=== PATIENT | male | born 1950 | race Caucasian/White ===

== ENCOUNTER 2023-06-08 19:24 | Inpatient (IN) ==
[2023-06-08] MEDS: NOREPINEPHRINE/D5W 4 MG/250 ML PLCT IV SCH (19:34)
[2023-06-08] MEDS: EPINEPHrine/NSS 4 MG/254 ML BAG IV SCH (19:34)
[2023-06-08] MEDS: propofoL 1,000 MG/100 ML VIAL IV SCH (19:35)
[2023-06-08 19:50] LABS: iSTAT Creatinine 1.5 mg/dl (0.6-1.3); iSTAT Hemoglobin 13.6 g/dl (14.0-18.0); iSTAT Ionized Calcium 1.26 mmol/l (1.12-1.32); iSTAT Potassium 6.5 mmol/L (3.3-5.0)
[2023-06-08 19:51] LABS: Oxygen Saturation VBG 61.8 %; PCO2 VBG 102 mmHg (38-50); PO2 VBG 54 mmHg; pH VBG < 7.00 (7.36-7.41)
[2023-06-08 19:58] LABS: INR 1.2 (0.9-1.1); Prothrombin Time 12.7 Seconds (9.0-12.0)
[2023-06-08 20:14] LABS: Basophils # (auto) 0.05 K/uL (0.00-0.20); Basophils % (auto) 0.6 %; Echinocytes 3+; Eosinophils % (auto) 2.3 %; Hematocrit (blood only) 44.8 % (42.0-52.0); Hemoglobin 13.3 g/dl (14.0-18.0); Immature Granulocytes # (auto) 0.55 K/uL (0.01-0.20); Immature Granulocytes % (auto) 6.3 %; Lymphocytes # (auto) 2.18 K/uL (1.20-3.40); Lymphocytes % (auto) 25.1 %; Mean Corpuscular Hemoglobin 28.9 pg (25.0-34.0); Mean Corpuscular Hgb Conc 29.7 g/dL (32.0-36.0); Mean Corpuscular Volume 97.2 fL (80.0-100.0); Mean Platelet Volume 11.4 fL (9.4-12.4); Monocytes # (auto) 0.49 K/uL (0.11-0.59); Monocytes % (auto) 5.6 %; Neutrophils # (auto) 5.23 K/uL (1.40-6.50); Neutrophils % (auto) 60.1 %; Nucleated RBC # (auto) 0.02 K/uL (0.00-0.12); Nucleated RBC % (auto) 0.2 %; Platelet Count 118 K/uL (130-400); Polychromasia 1+; Red Blood Count 4.61 M/uL (4.70-6.10)
[2023-06-08 20:16] LABS: iSTAT Creatinine 1.4 mg/dl (0.6-1.3); iSTAT Hemoglobin 13.6 g/dl (14.0-18.0); iSTAT Ionized Calcium 1.42 mmol/l (1.12-1.32); iSTAT Potassium 7.1 mmol/L (3.3-5.0)
[2023-06-08 20:25] LABS: Alanine Aminotransferase 77 U/L (7-52); Albumin Globulin Ratio 1.2 (0.9-2); Albumin Level 3.1 gm/dl (3.4-5.0); Alkaline Phosphatase 58 U/L (34-104); Anion Gap 12 (3-11); Aspartate Aminotransferase 98 U/L (13-39); BUN Creatinine Ratio 12.4 (10-20); Bilirubin,Total 0.4 mg/dl (0.2-1.0); Blood Urea Nitrogen 20 mg/dl (6-23); Calcium 9.4 mg/dl (8.6-10.3); Carbon Dioxide 23 mmol/L (21-32); Chloride 102 mmol/L (98-107); Creatine Kinase 136 U/L (30-223); Est GFR (African American) 48.8 ml/min; Est GFR (Non-African American) 42.1 ml/min; Globulin 2.5 gm/dl (2.5-4.0); Glucose 380 mg/dl (70-99(Fasting)); Lipase 60 U/L (11-82); Potassium 6.5 mmol/L (3.5-5.1); Sodium 137 mmol/L (136-145); Total Protein 5.6 gm/dl (6.0-8.3)
[2023-06-08] MEDS: SODIUM BICARBONATE 8.4% 75 MEQ in SODIUM CHLORIDE 0.45 % 1,000 ML IV SCH (21:00)
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
[2023-06-08] MEDS: NovoLIN-R INSULIN PER UNIT CHARGE IV STA (21:18)
[2023-06-08] MEDS: STAT IV/IM STA (21:18)
[2023-06-08] MEDS: STAT IV Infusion **Titration per Protocol STA ×3 (21:18→21:52)
[2023-06-08] MEDS: ALBUTEROL 0.5% NEB SOLN 2.5 MG/0.5 ML VIAL NEB STA (21:18)
[2023-06-08] MEDS: RAPID SEQUENCE INDUCTION BAG ONE (21:20)
[2023-06-08 21:24] LABS: iSTAT Arterial Blood Gas HCO3 20 meg/L (19-24); iSTAT Arterial Blood Gas pCO2 52 mmHg (35-46); iSTAT Arterial Blood Gas pO2 239 mmHg (80-95); iSTAT Carbon Dioxide 22 mmol/L (24-31); iSTAT Hematocrit 44 % (42-52); iSTAT Potassium 6.5 mmol/L (3.3-5.0); iSTAT Sodium 137 mmol/L (135-144)
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
[2023-06-08] MEDS ORDERED: PROPOFOL BOLUS FROM BAG IV PRN (21:30)
[2023-06-08] MEDS: PROPOFOL IV EMULSION 10 MG/ML 100 ML VIAL IV ONE (21:52)
[2023-06-08 22:02] LABS: Appearance Urine Cloudy (Clear); Bacteria Urine Automated Negative (Negative); Bilirubin Urine Negative (Negative); Blood Urine Negative (Negative); Color Urine Yellow; Epithelial Cell Urine Auto >30 /lpf (0-5); Glucose Urine UA Negative (Negative); Ketones Urine Negative (Negative); Leukocyte Esterase Urine Negative (Negative); Nitrite Urine Negative (Negative); Protein Urine 2+ (Negative); Specific Gravity Urine 1.023 (1.000-1.030); Urobilinogen Urine Negative (Negative)
[2023-06-08] MEDS: OPTIRAY 320 125ml IV ONE (22:45)
--- NOTE | 2023-06-08 23:03 | CT Scan Report ---
Exam(s): CT HEAD Without Contrast EXAM: CT Head Without Intravenous Contrast CLINICAL HISTORY: Reason for exam: post arrest. TECHNIQUE: Axial computed tomography images of the head/brain without intravenous contrast. CTDI is 54.8 mGy and DLP is 1067.74 mGy-cm. Automated exposure control was utilized for the study. A dose lowering technique was utilized adhering to the principles of ALARA. COMPARISON: No relevant prior studies available. FINDINGS: Brain: Diffuse loss of perez-white matter differentiation. Sulcal, sylvian fissure, and basal cistern effacement. Background of chronic small vessel ischemic disease. No acute intracranial hemorrhage. No midline shift. Ventricles: Unremarkable. No hydrocephalus. Bones/joints: Unremarkable. No skull fracture. Soft tissues: Unremarkable. Sinuses: Chronic severe inflammatory paranasal sinus disease with complete opacification of the left frontal sinus and bilateral maxillary sinuses, in majority opacification of the ethmoid air cells. Mild mucosal thickening in the sphenoid sinus. Right frontal sinus is clear. Mastoid air cells: Mastoid air cells are clear. Tubes, lines and devices: Patient is intubated. IMPRESSION: Diffuse loss of perez-white matter differentiation. Global cerebral edema. Findings consistent with hypoxic-ischemic injury. Electronically signed by: Jarek Harden M.D. 06/08/23 23:02 PM
--- NOTE | 2023-06-08 23:11 | CT Scan Report ---
Exam(s): CTA CHEST W/WO Contrast IV Amt: 114 ml opti 320 EXAM: CT Angiography Chest Without and With Intravenous Contrast CLINICAL HISTORY: Reason for exam: post arrest. TECHNIQUE: Axial computed tomographic angiography images of the chest without and with intravenous contrast. CTDI is 54.8 mGy and DLP is 1448.63 mGy-cm. Automated exposure control was utilized for the study. A dose lowering technique was utilized adhering to the principles of ALARA. MIP reconstructed images were created and reviewed. CONTRAST: Patient received 114 ml opti 320 of IV contrast COMPARISON: No relevant prior studies available. FINDINGS: Endotracheal tube terminates 2.5 cm from the frieda. Right internal jugular central venous catheter extends to the SVC. There is a left chest wall dual-lead AICD-pacemaker. There is thoracic aortic atherosclerosis without intramural hematoma, aneurysm, or dissection. There is adequate pulmonary artery opacification with normal caliber of the main pulmonary artery. There is no evidence of acute pulmonary embolism. Heart size is upper limits of normal. Coronary arteries are calcified. There is no pericardial effusion or RV strain. There is no mediastinal, hilar, or axillary lymphadenopathy by CT size criteria. There are small layering bilateral pleural effusions. There is no pneumothorax. Dependent consolidations are present in the bilateral upper and lower lobes, with nondependent patchy alveolar opacities bilaterally. Additionally, pulmonary edema suggested with septal thickening diffusely. There are findings of recent chest compressions with acute nondisplaced sternal body fracture. There are nondisplaced buckle fractures of anterior right ribs 3-4. There are mildly displaced fractures of anterior left ribs 2-3, and nondisplaced fractures of anterior left ribs 4-6. There are degenerative changes within the spine. IMPRESSION: 1. Evidence of recent chest compressions with nondisplaced sternal body fracture, fractures of anterior right ribs 3-4, and fractures of anterior left ribs 2-6. Fractures of left ribs 2-3 are mildly displaced. 2. Bilateral dependent consolidations and nondependent patchy opacities. Such parenchymal lung abnormalities are frequently seen status post chest compressions. Aspiration, pneumonia not excluded. 3. Pulmonary edema and small pleural effusions. 4. No evidence of aortic aneurysm or dissection. No evidence of pulmonary embolism. Electronically signed by: Jarek Harden M.D. 06/08/23 23:09 PM
--- NOTE | 2023-06-08 23:17 | Procedure Note ---
Procedure Note Date of Service June 08, 2023 Note ARTERIAL LINE PROCEDURE NOTE: Procedure: Arterial Line Placement Proceduralist: Yuniel GRAJEDA [facility] Attending: Dr. Rubio Indication: Monitoring on Pressors Anesthesia: x None Emergent Consent was implied as patient is full code presenting as cardiac arrest requiring high dose vasopressors and on full life support. A time-out was completed verifying correct patient, procedure, site, positioning. Allens test was performed to ensure adequate perfusion. Patients RIGHT wrist was prepped and draped in the usual sterile fashion. Under direct palpation, A 20g Arrow arterial line was introduced into the RIGHT RADIAL artery x1 attempt. Brisk blood flow was noted, wire was advanced without resistance and the catheter was threaded without resistance. The needle was removed with appropriate blood return, pressure tubing was attached and good arterial waveform was observed. The patient tolerated the procedure well. The line was secured using suture and dressed sterile. Blood Loss: Minimal Complications: None immediately noted Coding CPT Codes Tubes, Drains, and Vasc Access - Tubes, Drains, and Vasc Access: [id number] Arterial Cath/Cannulation Sampling/Monitoring/Transfusion ([id number]) [facility] [place] Procedure Codes (Charges) Tubes, Drains, and Vasc Access Procedure 1: Tubes, Drains, and Vasc Access: [id number] Arterial Cath/Cannulation Sampling/Monitoring/Transfusion
--- NOTE | 2023-06-08 23:17 | Critical Care Consultation ---
Date of Consultation June 08, 2023 Assessment & Plan (1) Morbid obesity: (2) Cardiac arrest: (3) Required emergency intubation: (4) Shock circulatory: (5) Hyperkalemia: (6) Metabolic acidosis: (7) Lactic acidosis: (8) DEVAUGHN (acute kidney injury): (9) Elevated liver enzymes: (10) Hyperglycemia: (11) Heart failure: (12) Current use of longterm anticoagulation: Plan Reason Critically Ill: [facility] x2 with [facility] x1 with return of ROSC, extended down time and hypoxic. Admitted to ICU post cardiac arrest care with strong concern and suspicion for anoxic brain injury. Neuro - Concern for anoxic brain injury, Sedation for mechanical ventilation CAM ICU: [facility] - Currently patient without favorable neurologic exam post arrest- he is with GCS 3T and Four Score of 1 (E0, M0, B0, R1) - Head CT obtained unfortunately already reveals loss of perez-white matter differentiation with global cerebral edema- consistent with anoxic/ischemic injury- this carries a poor prognostication for meaningful neurological recovery at this time, however full neurological prognostication for PSV/brain should occur at 72 hour matilda. - Obtain MRI in morning and EEG in morning for further neuro-prognostication and evaluation - He is Hypothermic on arrival to EMD and in the ICU at 35.1- will not warm or cool at this time- maintain normothermia with goal <37.5 - Correct acidosis, maintain Glucose 110-180, maintain PaO2 >60 and Spo2 >95, maintain CO2 35-45 - He was with myoclonic jerks and bucking the ventilator when sedation was low in the EMD- this has decreased following increasing propofol to 30mcg/kg/min- continue sedation for antiseizure properties with this degree of likely cerebral ischemia - If siezure activity worsens or is more apparent add keppra - Await family arrival to further determine goals of care. Cardiac - post cardiac arrest x3, shock circulatory with organ dysfunction, HFrEF, presence of AICD, longterm anticoagulated with Eliquis, Antiarrhythmic - [facility] x2 and IHCA x1- with return of ROSC and prolonged down time- Normothermia goal as above - Unsure of etiology of his Cardiac Arrest at this time- had bedside ECHO performed by interventional cardiology- appreciate recs- noted with depressed EF and no RWMA- does not feel secondary to STEMI cause - CTA of chest negative for PE - If he survives or care is extended- interrogate AICD as no apparent discharges noted from arrests- pacing was appropriate AV post arrest - Appears euvolemic on exam - Was noted to be hyperkalemic on arrival but also associated with severe acidosis and this is likely related to prolonged downtime other than chronic hyperkalemia however unable to differentiate - Magnesium being checked on arrival to ICU- replace for goal >2.0 - Continue his Amiodarone down OGT in morning- if he is with ventricular ectopy or atrial arrhythmia will change to IV amiodarone, or if vasopressor requirement remains too high for safe GI administration place on IV without bolus - Hold Entresto, Carvedilol- until hemodynamics proven stable - Circulatory shock post cardiac arrest with multiorgan dysfunction - heart, lungs, neurological, liver, kidneys effected- Continue vasopressor support- wean as able to one vasopressor - Place arterial line - Continue supportive care Respiratory - Respiratory failure in setting of cardiac arrest requiring intubation and mechanical ventilation, hypoxia resolved - CTA negative for PE - Bilateral Pleural Effusions small no concern for hemothorax at this time - Wean vent settings as appropriate to maintain normal oxia and normal carbia GI - Elevated liver enzymes - Likely ischemia from shock- trend LFTS and INR - Continue supportive care - Hold Eliquis at this time RENAL/LYTES - DEVAUGHN, metabolic acidosis, lactic acidosis, hyperkalemia - DEVAUGHN with unknown baseline LEAD INVESTIGATOR- this most likely will progress to ATN with extent of downtime/hypoxia/hypoperfusion- supportive care- currently anuric - Continue with isotonic bicarb infusion until HCO3 20 - Hyperkalemia treated in EMD with insulin and calcium, and isotonic bicarb infusion - since corrected- likely secondary to severe acidosis and hypoxia/hypoperfusion - Lactic acidosis resolving- continue with vasopressors to maintain MAPS >65- secondary cardiac arrest/hypoxia/hypoperfusion - No acute needs - paul to gravity ENDO - Hyperglycemia - ICU hyperglycemia protocol- 219 on arrival- subq insulin now and trend if no effect transition to insulin infusion HEME - No acute needs MSK: Sternal fracture, multiple rib fractures - Post CPR, and without pneumo/hemothorax - no acute interventions at this time ID - No concern for infection at this time - Follow CXR, fever curve, WBC count- aspiration pneumonitis likely in this setting LINES/IV ACCESS - CVL, ETT, OGT, Paul, [place], PIV Continue use of these lines DVT PROPHYLAXIS - SCDS, chemoprophylaxis in am Family discussion: Family to include and two sons presented to the bedside. Reviewed his relevant course of cardiac arrests and current status. We discussed that he had a prolonged down time as well as 2 other cardiac arrests. We then reviewed his current neurological state- with him only being present with breathing over the ventilator and negative cough/gag/corneal reflexes. We discussed that his CT scan at this time which reveals loss of wright-white matter as well as early global cerebral edema and that this being present this early is a grave finding as well as a predictor of very poor chance of a meaningful neurological recovery. We discussed that to give a true neuro- prognostication, this should occur at the 72 hour matilda and during that time he would get an MRI and and EEG in the morning for evaluation of underlying neurological activity and evaluate further anoxic injury with MRI. We reviewed his current organ dysfunction and vasopressor agent and requirements. Following this the stated that he has not been feeling well for the past few months and that he actually got defibrillated by his AICD in September of 2022. She states that he has been so short of breath over the past few weeks that he could not walk 50 feet and that he started talking to her about the dying process and he felt he was close. She stated that he was with his friend today and told him that he feels that this would be his last visit to him and hunting camp this year. The and the sons both discussed at the bedside that he wouldn't have wanted to be in this current state and that God had already intervened and they don't want him to suffer or be in pain. They were given options of continuing full support for 72 hours and await further evaluations but making him DNR without escalation of care, Waiting 72 hours and continuing full support and what would happen if he would survive and have a recovery followed by rehab and care or if he survived and remained in his current state or PSV, and discussed stopping care at this time and extubating him to comfort care and providing medications so that he would not feel as he wasn't getting air, control anxiety and seizures, control secretions and let him pass with no further interventions. She stated that he would not want to be kept alive on life support and would not want to be left dependant on a ventilator or feeding tubes if he were to wait 72 hours and he would survive to remain in this current state. The and the son's both echoed that he wouldn't want to be like this or even if survived and recovered that he would not want to be dependant on others to take care of him. They opted for palliative extubation with stopping all vasoactive and sedating medications, terminally extubating the patient and provide comfort measures. DISPO- ICU while on vasopressors, intubated and sedated I have personally spent 70 minutes of critical care time in the direct management of this patient. This is a life/limb threatening event. This includes time spent evaluating patient, direct bedside care, chart review, placing orders, interpretation of diagnostic studies, discussion with consultants, patient, and family members, as well as other required patient management activities. This time is exclusive of all separately billable procedures, and teaching time and separate from and in addition to any other critical care service time. Thank you for allowing us to participate in the care of this patient. Please refer to my attending physician's documentation for any further recommendations. History of Present Illness Reason for Consultation: cardiac arrest intubated and sedated Requesting Physician: Wilmer Gamboa MD Attending Physician: Bert Campa MD History of Present Illness All information in this note is from review of current notes available as patient is out of area. No prior chart information available for review, however noting from CXR the patient does have AICD in place that did not appear to fire per reports of EMS or EMD physician during arrests, medication review does note Entresto, amiodarone, Eliquis, nitroglycerine tablets, and rosuvastatin- consistent with history of CAD, arrhythmia of unknown etiology, as well as HFrEF. 73 YOM brought in from [facility] via EMS. Per current information, the patient was driving along the highway with a friend to [employer], when he reportedly complained of chest pain and went unresponsive. 911 was summoned and EMS arrived. He was reported pulseless and no shock x2 advised per ER note from EMS. He was reportedly treated for PEA with epinephrine x5 and 50meq HCo3. Reported when ALS arrived he was noted to be in Vtach and was defibrillated x1 and intubated in the field. ROSC was reportedly obtained x2 and presented to the EMD with a pulse, that rapidly declined to no pulse noting Vfib on the monitor. He was defibrillated again with return of paced rhythm with a pulse noted. He was escalated on his epinephrine infusion. He was noted to be notably hypoxic with return of ROSC in the 60s. Severely acidotic and hyperkalemic on arrival to [facility]. Patient was eventually stabilized requiring 2 vasopressor agents to maintain MAP, heart rhythm is s in NSR without paced beats, a CVL was placed sterile by EMD physician. Interventional cardiology was consulted post arrest and performed beside ECHO evaluation- see his separate note, but essentially depressed EF without acute RWMA. CXR reviewed independently with adequate placement and no pneumothorax, but noted ETT 5.6 cm will recheck CXR post trasnfer to the ICU for lines and tubes. ABG on arrival. Did request Head CT and CTA of the chest be obtained as concern for PE as well as anoxic brain injury. Family is reportedly on their way and remains full code per EMD physician discussion with family. CODE: FULL Allergies Allergy/AdvReac Type Severity Reaction Status Date / Time Unable to Assess Allergy Verified 06/08/23 19:48 Home Medications Medication Instructions Recorded Confirmed Type amiodarone 200 mg tablet 200 mg PO DAILY 06/08/23 06/08/23 History apixaban 5 mg tablet (Eliquis) 5 mg PO BID 06/08/23 06/08/23 History carvedilol 12.5 mg tablet 12.5 mg PO BID 06/08/23 06/08/23 History fluocinolone 0.01 % topical body 1 applic topical DIRECTED 06/08/23 06/08/23 History oil furosemide 40 mg tablet 40 mg PO DAILY 06/08/23 06/08/23 History ketoconazole 2 % shampoo 1 applic topical DIRECTED 06/08/23 06/08/23 History nitroglycerin 0.4 mg sublingual 0.4 mg sublingual DIRECTED PRN 06/08/23 06/08/23 History tablet Chest Pain rosuvastatin 20 mg tablet 20 mg PO DAILY 06/08/23 06/08/23 History sacubitril 49 mg-valsartan 51 mg 1 tab PO BID 06/08/23 06/08/23 History tablet (Entresto) sertraline 50 mg tablet 50 mg PO DIRECTED 06/08/23 06/08/23 History Patient History Social History Smoking Status: Unknown if ever smoked Preferred Language: Italian 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 Chest: equal rise and fall of the chest, no accessory muscle use, does orta against ventilator without sedation, Cardiac: Regular rate and rhythm, telemetry reviewed- NSR no ectopy, skin warm dry, cap refill <3 seconds, peripheral pulses +2, no murmur, skin warm and dry GI: NABS x 4 quadrants, soft obese, : Paul to gravity Extremities: Normal inspection, no peripheral edema or erythema, calfs nontender to palpation Skin: no rash or erythema Results & Data Results & Data Vital Signs (Past 12 Hours) Vital Signs Temp Pulse Pulse Resp BP Pulse Ox O2 Del Method 06/08/23 22:20 158/101 H 06/08/23 22:20 35.2 C L 69 24 98 06/08/23 22:15 161/107 H 06/08/23 22:15 35.2 C L 69 20 98 06/08/23 22:10 35.2 C L 70 20 98 06/08/23 22:10 156/96 H 06/08/23 22:06 147/96 H 06/08/23 22:06 35.2 C L 70 19 98 06/08/23 22:00 172/99 H 06/08/23 22:00 35.2 C L 71 24 98 06/08/23 21:55 154/115 H 06/08/23 21:55 35.3 C L 73 20 98 06/08/23 21:50 170/94 H 06/08/23 21:50 35.3 C L 71 23 97 06/08/23 21:45 35.3 C L 73 22 98 06/08/23 21:45 144/91 H 06/08/23 21:41 162/88 H 06/08/23 21:41 35.4 C L 74 22 97 06/08/23 21:35 170/99 H 06/08/23 21:35 35.4 C L 76 0 L 98 06/08/23 21:34 78 26 H 97 Mechanical Vent 06/08/23 21:33 161/98 H 06/08/23 21:33 35.4 C L 75 22 96 06/08/23 21:31 35.5 C L 76 24 96 06/08/23 21:31 167/94 H 06/08/23 21:30 35.5 C L 75 21 96 06/08/23 21:28 166/96 H 06/08/23 21:28 35.5 C L 75 23 96 06/08/23 21:27 35.9 C L 75 161/87 H 96 Mechanical Vent 06/08/23 21:26 161/87 H 06/08/23 21:26 35.5 C L 74 24 96 06/08/23 21:24 Mechanical Vent 06/08/23 21:23 121/77 06/08/23 21:23 35.5 C L 72 23 97 06/08/23 21:23 72 06/08/23 21:23 96 Mechanical Vent 06/08/23 21:21 104/59 L 06/08/23 21:21 35.5 C L 72 26 H 98 06/08/23 21:19 35.5 C L 72 23 98 06/08/23 21:16 35.6 C L 71 26 H 98 06/08/23 21:16 103/60 06/08/23 21:15 35.6 C L 71 23 99 06/08/23 21:15 06/08/23 21:12 84/67 L 06/08/23 21:12 35.6 C L 71 22 99 06/08/23 21:11 100/73 06/08/23 21:11 35.6 C L 71 23 99 06/08/23 21:08 129/64 06/08/23 21:08 35.6 C L 72 22 99 06/08/23 21:06 35.6 C L 73 23 99 06/08/23 21:06 140/77 06/08/23 21:06 140/77 06/08/23 21:03 152/86 H 06/08/23 21:03 35.6 C L 74 24 98 06/08/23 21:01 35.7 C L 74 26 H 98 06/08/23 20:30 51 L 22 92 06/08/23 19:57 51 L 06/08/23 19:50 45 L 06/08/23 19:28 50 L FiO2 06/08/23 22:20 06/08/23 22:20 06/08/23 22:15 06/08/23 22:15 06/08/23 22:10 06/08/23 22:10 06/08/23 22:06 06/08/23 22:06 06/08/23 22:00 06/08/23 22:00 06/08/23 21:55 06/08/23 21:55 06/08/23 21:50 06/08/23 21:50 06/08/23 21:45 06/08/23 21:45 06/08/23 21:41 06/08/23 21:41 06/08/23 21:35 06/08/23 21:35 06/08/23 21:34 06/08/23 21:33 06/08/23 21:33 06/08/23 21:31 06/08/23 21:31 06/08/23 21:30 06/08/23 21:28 06/08/23 21:28 06/08/23 21:27 06/08/23 21:26 06/08/23 21:26 06/08/23 21:24 06/08/23 21:23 06/08/23 21:23 06/08/23 21:23 06/08/23 21:23 06/08/23 21:21 06/08/23 21:21 06/08/23 21:19 06/08/23 21:16 06/08/23 21:16 06/08/23 21:15 06/08/23 21:15 80 06/08/23 21:12 06/08/23 21:12 06/08/23 21:11 06/08/23 21:11 06/08/23 21:08 06/08/23 21:08 06/08/23 21:06 06/08/23 21:06 06/08/23 21:06 06/08/23 21:03 06/08/23 21:03 06/08/23 21:01 06/08/23 20:30 100 06/08/23 19:57 06/08/23 19:50 06/08/23 19:28 Laboratory Results Abnormal lab results 06/08/23 06/08/23 06/08/23 Range/Units 19:35 19:38 20:04 RBC 4.61 L (4.70-6.10) M/uL Hgb 13.3 L (14.0-18.0) g/dl POC Hgb 13.6 L 13.6 L (14.0-18.0) g/dl POC Hct 40 L 40 L (42-52) % MCHC 29.7 L (32.0-36.0) g/dL RDW Std Deviation 50.0 H (36.4-46.3) fL Plt Count 118 L (130-400) K/uL Immature Gran # (Auto) 0.55 H (0.01-0.20) K/uL PT 12.7 H (9.0-12.0) Seconds INR 1.2 H (0.9-1.1) POC pH (7.35-7.45) POC pCO2 (35-46) mmHg POC pO2 (80-95) mmHg ABG pH (Temp Correct) (7.35-7.45) POC ABG O2 Sat (90-95) % VBG pH < 7.00 L (7.36-7.41) VBG pCO2 102 H (38-50) mmHg POC Potassium 6.5 H* 7.1 H* (3.3-5.0) mmol/L Potassium 6.5 H* (3.5-5.1) mmol/L POC Total CO2 33 H (24-31) mmol/L Anion Gap 12 H (3-11) POC Anion Gap 14.0 L (16-25) mmol/L POC BUN 22 H 22 H (7-18) mg/dl Creatinine 1.61 H (0.6-1.4) mg/dl POC Creatinine 1.5 H 1.4 H (0.6-1.3) mg/dl Glucose 380 H* (70-99(Fasting)) mg/dl POC Glucose (70-99) mg/dl POC Glucose (other) 357 H* 341 H (70-99) mg/dl Lactate 9.5 H* (0.4-2.0) mmol/L POC Ioniz Calcium Sadie 1.42 H (1.12-1.32) mmol/l AST 98 H (13-39) U/L ALT 77 H (7-52) U/L Troponin I High Sens 53.0 H* (0-20) pg/ml Total Protein 5.6 L (6.0-8.3) gm/dl Albumin 3.1 L (3.4-5.0) gm/dl Urine Appearance (Clear) Urine Protein (Negative) Urine WBC (Auto) (0-5) /hpf Urine RBC (Auto) (0-4) /hpf U Epithel Cells (Auto) (0-5) /lpf 06/08/23 06/08/23 06/08/23 Range/Units 20:08 21:12 21:29 RBC (4.70-6.10) M/uL Hgb (14.0-18.0) g/dl POC Hgb (14.0-18.0) g/dl POC Hct (42-52) % MCHC (32.0-36.0) g/dL RDW Std Deviation (36.4-46.3) fL Plt Count (130-400) K/uL Immature Gran # (Auto) (0.01-0.20) K/uL PT (9.0-12.0) Seconds INR (0.9-1.1) POC pH 7.20 L (7.35-7.45) POC pCO2 52 H (35-46) mmHg POC pO2 239 H (80-95) mmHg ABG pH (Temp Correct) (7.35-7.45) POC ABG O2 Sat 100.0 H (90-95) % VBG pH (7.36-7.41) VBG pCO2 (38-50) mmHg POC Potassium 6.5 H* (3.3-5.0) mmol/L Potassium (3.5-5.1) mmol/L POC Total CO2 22 L (24-31) mmol/L Anion Gap (3-11) POC Anion Gap (16-25) mmol/L POC BUN (7-18) mg/dl Creatinine (0.6-1.4) mg/dl POC Creatinine (0.6-1.3) mg/dl Glucose (70-99(Fasting)) mg/dl POC Glucose 270 H (70-99) mg/dl POC Glucose (other) (70-99) mg/dl Lactate (0.4-2.0) mmol/L POC Ioniz Calcium Sadie (1.12-1.32) mmol/l AST (13-39) U/L ALT (7-52) U/L Troponin I High Sens (0-20) pg/ml Total Protein (6.0-8.3) gm/dl Albumin (3.4-5.0) gm/dl Urine Appearance Cloudy A (Clear) Urine Protein 2+ H (Negative) Urine WBC (Auto) 10-30 H (0-5) /hpf Urine RBC (Auto) 5-10 H (0-4) /hpf U Epithel Cells (Auto) >30 H (0-5) /lpf 06/08/23 06/08/23 06/08/23 Range/Units 21:32 23:25 23:37 RBC (4.70-6.10) M/uL Hgb (14.0-18.0) g/dl POC Hgb (14.0-18.0) g/dl POC Hct (42-52) % MCHC (32.0-36.0) g/dL RDW Std Deviation (36.4-46.3) fL Plt Count (130-400) K/uL Immature Gran # (Auto) (0.01-0.20) K/uL PT (9.0-12.0) Seconds INR (0.9-1.1) POC pH 7.32 L (7.35-7.45) POC pCO2 (35-46) mmHg POC pO2 140 H (80-95) mmHg ABG pH (Temp Correct) 7.348 L (7.35-7.45) POC ABG O2 Sat 99.0 H (90-95) % VBG pH (7.36-7.41) VBG pCO2 (38-50) mmHg POC Potassium 5.2 H (3.3-5.0) mmol/L Potassium (3.5-5.1) mmol/L POC Total CO2 21 L (24-31) mmol/L Anion Gap (3-11) POC Anion Gap (16-25) mmol/L POC BUN (7-18) mg/dl Creatinine (0.6-1.4) mg/dl POC Creatinine (0.6-1.3) mg/dl Glucose (70-99(Fasting)) mg/dl POC Glucose 219 H (70-99) mg/dl POC Glucose (other) (70-99) mg/dl Lactate 5.5 H* (0.4-2.0) mmol/L POC Ioniz Calcium Sadie (1.12-1.32) mmol/l AST (13-39) U/L ALT (7-52) U/L Troponin I High Sens 186.9 H* D (0-20) pg/ml Total Protein (6.0-8.3) gm/dl Albumin (3.4-5.0) gm/dl Urine Appearance (Clear) Urine Protein (Negative) Urine WBC (Auto) (0-5) /hpf Urine RBC (Auto) (0-4) /hpf U Epithel Cells (Auto) (0-5) /lpf Diagnostic Findings Chest CTA 06/08/23 21:04 Exam(s): CTA CHEST W/WO Contrast IV Amt: 114 ml opti 320 EXAM: CT Angiography Chest Without and With Intravenous Contrast CLINICAL HISTORY: Reason for exam: post arrest. TECHNIQUE: Axial computed tomographic angiography images of the chest without and with intravenous contrast. CTDI is 54.8 mGy and DLP is 1448.63 mGy-cm. Automated exposure control was utilized for the study. A dose lowering technique was utilized adhering to the principles of ALARA. MIP reconstructed images were created and reviewed. CONTRAST: Patient received 114 ml opti 320 of IV contrast COMPARISON: No relevant prior studies available. FINDINGS: Endotracheal tube terminates 2.5 cm from the frieda. Right internal jugular central venous catheter extends to the SVC. There is a left chest wall dual-lead AICD-pacemaker. There is thoracic aortic atherosclerosis without intramural hematoma, aneurysm, or dissection. There is adequate pulmonary artery opacification with normal caliber of the main pulmonary artery. There is no evidence of acute pulmonary embolism. Heart size is upper limits of normal. Coronary arteries are calcified. There is no pericardial effusion or RV strain. There is no mediastinal, hilar, or axillary lymphadenopathy by CT size criteria. There are small layering bilateral pleural effusions. There is no pneumothorax. Dependent consolidations are present in the bilateral upper and lower lobes, with nondependent patchy alveolar opacities bilaterally. Additionally, pulmonary edema suggested with septal thickening diffusely. There are findings of recent chest compressions with acute nondisplaced sternal body fracture. There are nondisplaced buckle fractures of anterior right ribs 3-4. There are mildly displaced fractures of anterior left ribs 2-3, and nondisplaced fractures of anterior left ribs 4-6. There are degenerative changes within the spine. IMPRESSION: 1. Evidence of recent chest compressions with nondisplaced sternal body fracture, fractures of anterior right ribs 3-4, and fractures of anterior left ribs 2-6. Fractures of left ribs 2-3 are mildly displaced. 2. Bilateral dependent consolidations and nondependent patchy opacities. Such parenchymal lung abnormalities are frequently seen status post chest compressions. Aspiration, pneumonia not excluded. 3. Pulmonary edema and small pleural effusions. 4. No evidence of aortic aneurysm or dissection. No evidence of pulmonary embolism. Electronically signed by: Jarek Harden M.D. 06/08/23 23:[address] 06/08/23 21:04 Exam(s): CT HEAD Without Contrast EXAM: CT Head Without Intravenous Contrast CLINICAL HISTORY: Reason for exam: post arrest. TECHNIQUE: Axial computed tomography images of the head/brain without intravenous contrast. CTDI is 54.8 mGy and DLP is 1067.74 mGy-cm. Automated exposure control was utilized for the study. A dose lowering technique was utilized adhering to the principles of ALARA. COMPARISON: No relevant prior studies available. FINDINGS: Brain: Diffuse loss of perez-white matter differentiation. Sulcal, sylvian fissure, and basal cistern effacement. Background of chronic small vessel ischemic disease. No acute intracranial hemorrhage. No midline shift. Ventricles: Unremarkable. No hydrocephalus. Bones/joints: Unremarkable. No skull fracture. Soft tissues: Unremarkable. Sinuses: Chronic severe inflammatory paranasal sinus disease with complete opacification of the left frontal sinus and bilateral maxillary sinuses, in majority opacification of the ethmoid air cells. Mild mucosal thickening in the sphenoid sinus. Right frontal sinus is clear. Mastoid air cells: Mastoid air cells are clear. Tubes, lines and devices: Patient is intubated. IMPRESSION: Diffuse loss of perez-white matter differentiation. Global cerebral edema. Findings consistent with hypoxic-ischemic injury. Electronically signed by: Jarek Harden M.D. 06/08/23 23:02 PM Medications Administered Epinephrine HCl () 4 mg in 254 mls @ 10.15 mls/hr IV .Q24H LEONEL; Protocol Stop: 07/08/23 19:29 Last Admin: 06/08/23 19:34 Dose: 0.02 mcg/kg/min, 10.2 mls/hr Documented By: SARI Co-signed By: DANAE Sodium Bicarbonate 75 meq/ (Sodium Chloride) 1,075 mls @ 50 mls/hr IV .[id number] LEONEL Stop: 07/08/23 20:14 Last Admin: 06/08/23 21:00 Dose: 50 mls/hr Documented By: SARI Propofol (Diprivan) 1,000 mg in 100 mls @ 15.984 mls/hr IV .Q6H16M LEONEL; Protocol Stop: 06/11/23 21:29 Last Titration: 06/08/23 21:54 Dose: 30 mcg/kg/min, 24 mls/hr Documented By: Admin: 06/08/23 19:35 Dose: 20 mcg/kg/min, 16 mls/hr Documented By: SARI Co-signed By: DANAE Discontinued Medications Albuterol (Albuterol 0.5% Neb Soln 2.5 Mg/0.5 Ml Vial) 2.5 mg NEB NOW STA; Protocol Stop: 06/08/23 20:09 Last Admin: 06/08/23 21:18 Dose: 2.5 mg Documented By: SARI Norepinephrine Bitartrate (Levophed/D5w) 4 mg in 250 mls @ 24.975 mls/hr IV .Q10H1M LEONEL; Protocol Stop: 07/08/23 20:14 Last Titration: 06/08/23 22:00 Dose: 0 mcg/kg/min, 0 mls/hr Documented By: Titration: 06/08/23 21:54 Dose: 0.1 mcg/kg/min, 50 mls/hr Documented By: Admin: 06/08/23 19:34 Dose: 0.05 mcg/kg/min, 25 mls/hr Documented By: ASRI Co-signed By: DANAE Insulin Human Regular (Novolin-R Insulin Per Unit Charge) 10 units IV NOW STA Stop: 06/08/23 20:07 Last Admin: 06/08/23 21:18 Dose: 10 units Documented By: SARI Co-signed By: MED Ioversol (Optiray 320 125ml) 114 ml IV ONCE ONE Stop: 06/08/23 22:45 Last Admin: 06/08/23 22:45 Dose: 114 ml Documented By: ZUNILDA Angel (Stat Iv Infusion Titration Per Protocol) 1 each N/A NOW STA Stop: 06/08/23 19:30 Last Admin: 06/08/23 21:18 Dose: Not Given Documented By: SARI Angel (Rapid Sequence Induction Bag) Confirm Administered Dose 1 each N/A .STK-MED ONE Stop: 06/08/23 20:01 Last Admin: 06/08/23 21:20 Dose: Not Given Documented By: SARI Angel (Stat Iv/Im) 1 each N/A NOW STA Stop: 06/08/23 20:07 Last Admin: 06/08/23 21:18 Dose: Not Given Documented By: SARI Angel (Stat Iv Infusion Titration Per Protocol) 1 each N/A NOW STA Stop: 06/08/23 20:10 Last Admin: 06/08/23 21:19 Dose: Not Given Documented By: SARI Angel (Stat Iv Infusion Titration Per Protocol) 1 each N/A NOW STA Stop: 06/08/23 21:31 Last Admin: 06/08/23 21:52 Dose: Not Given Documented By: SARI Propofol (Propofol Iv Emulsion 10 Mg/Ml 100 Ml Vial) Confirm Administered Dose 1,000 mg IV .STK-MED ONE Stop: 06/08/23 20:25 Last Admin: 06/08/23 21:52 Dose: Not Given Documented By: SARI ECG Additional Comments: AV dual-paced rhythm with prolonged AV conduction with frequent ventricular- paced complexes Abnormal ECG No previous ECGs available Coding Level of Care Code 44262 CRITICAL CARE 1ST 30-74M Diagnoses Morbid obesity E66.01 Cardiac arrest I46.9 Required emergency intubation Z98.890 Shock circulatory R57.9 Hyperkalemia E87.5 Metabolic acidosis E87.20 Lactic acidosis E87.20 DEVAUGHN (acute kidney injury) N17.9 Elevated liver enzymes R74.8 Hyperglycemia R73.9 Heart failure I50.9 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
[2023-06-08 23:38] LABS: iSTAT Art Bld Gas pCO2 Correct 36 mmHg (35-46); iSTAT Art Bld Gas pH Corrected 7.348 (7.35-7.45); iSTAT Arterial Blood Gas HCO3 20 meg/L (19-24); iSTAT Arterial Blood Gas pCO2 39 mmHg (35-46); iSTAT Arterial Blood Gas pH 7.32 (7.35-7.45); iSTAT Arterial Blood Gas pO2 140 mmHg (80-95); iSTAT Arterial Blood Gas pO2 C 129; iSTAT Carbon Dioxide 21 mmol/L (24-31); iSTAT FiO2 80 %; iSTAT Hematocrit 43 % (42-52); iSTAT Hemoglobin 14.6 g/dl (14.0-18.0); iSTAT Potassium 5.2 mmol/L (3.3-5.0); iSTAT Site Art Line; iSTAT Sodium 138 mmol/L (135-144)
[2023-06-09] MEDS ORDERED: ACETAMINOPHEN 1,000 MG/100 ML VIAL IV PRN (00:04)
[2023-06-09 00:20] LABS: BUN Creatinine Ratio 15.6 (10-20); Calcium 8.5 mg/dl (8.6-10.3); Creatinine Clr Calc Pharmacy 56.7 ml/min; Est GFR (African American) 46.7 ml/min; Est GFR (Non-African American) 40.3 ml/min; Magnesium 1.9 mg/dl (1.7-2.4)
[2023-06-09] MEDS ORDERED: GLUCOSE 40% GEL 15 GM TUBE PO PRN (00:35)
[2023-06-09] MEDS ORDERED: CARBOHYDRATES FOR HYPOGLYCEMIA PO PRN (00:35)
[2023-06-09] MEDS ORDERED: GLUCOSE 10 TAB/TUBE PO PRN (00:35)
[2023-06-09] MEDS ORDERED: GLUCAGON FOR INJ 1 MG VIAL SQ PRN (00:35)
[2023-06-09] MEDS ORDERED: DEXTROSE 50% 50 ML SYRINGE IV PRN (00:35)
[2023-06-09] MEDS ORDERED: Nursing to Pharmacy Communication SCH (00:45)
[2023-06-09] MEDS: INSULIN ASPART PER UNIT CHARGE SC SCH (01:36)
[2023-06-09] MEDS: MAGNESIUM SULFATE / D5W 1 GM/100 ML BAG IV SCH (01:36)
[2023-06-09] MEDS ORDERED: PROMETHAZINE HCL 12.5 MG in SODIUM CHLORIDE 0.9% 50 ML IV PRN (01:40)
[2023-06-09] MEDS ORDERED: LORazepam 1 MG in SYRINGE 0.25 ML IV PRN (01:40)
[2023-06-09] MEDS ORDERED: GLYCOPYRROLATE 0.2 MG/ML VIAL IV PRN (01:40)
[2023-06-09] MEDS ORDERED: LORAZEPAM IV PRN (01:40)
[2023-06-09] MEDS: ONDANSETRON INJ 2 MG/ML 2 ML VIAL IV PRN (02:29)
[2023-06-09] MEDS: MoRPHine SULFATE 2 MG/ML CARP IV PRN (02:32)
--- NOTE | 2023-06-09 02:54 | Death Pronouncement Note ---
Date of Service June 09, 2023 Pronouncement Note Admission Date Admission Date: June 08, 2023 Contributing Factors (1) Heart failure: (2) Shock circulatory: (3) Morbid obesity: (4) Hyperkalemia: (5) Metabolic acidosis: (6) Required emergency intubation: (7) Lactic acidosis: (8) DEVAUGHN (acute kidney injury): (9) Elevated liver enzymes: (10) Cardiac arrest: (11) Hyperglycemia: (12) Current use of nursing home anticoagulation: Hospital Course Hospital Course: 73 YOM brought in from [facility] via EMS. Per current information, the patient was driving along the highway with a friend to [place], when he reportedly complained of chest pain and went unresponsive. 911 was summoned and EMS arrived. He was reported pulseless and no shock x2 advised per ER note from EMS. He was reportedly treated for PEA with epinephrine x5 and 50meq HCo3. Reported when ALS arrived he was noted to be in Vtach and was defibrillated x1 and intubated in the field. ROSC was reportedly obtained x2 and presented to the EMD with a pulse, that rapidly declined to no pulse noting Vfib on the monitor. He was defibrillated again with return of paced rhythm with a pulse noted. He was escalated on his epinephrine infusion. He was noted to be notably hypoxic with return of ROSC in the 60s. Severely acidotic and hyperkalemic on arrival to EMD. Patient was eventually stabilized requiring 2 vasopressor agents to maintain MAP, heart rhythm is s in NSR without paced beats, a CVL was placed sterile by EMD physician. Interventional cardiology was consulted post arrest and performed beside ECHO evaluation- see his separate note, but essentially depressed EF without acute RWMA. CXR reviewed independently with adequate placement and no pneumothorax, but noted ETT 5.6 cm will recheck CXR post trasnfer to the ICU for lines and tubes. ABG on arrival. Did request Head CT and CTA of the chest be obtained as concern for PE as well as anoxic brain injury. He was with GCS 3T and Four Score of [address] findings consistent with anoxic brain injury with cerebral edema already present. Family presented to the bedside and following discussion: soledady to include and two sons presented to the bedside. Reviewed his relevant course of cardiac arrests and current status. We discussed that he had a prolonged down time as well as 2 other cardiac arrests. We then reviewed his current neurological state- with him only being present with breathing over the ventilator and negative cough/gag/corneal reflexes. We discussed that his CT scan at this time which reveals loss of wright-white matter as well as early global cerebral edema and that this being present this early is a grave finding as well as a predictor of very poor chance of a meaningful neurological recovery. We discussed that to give a true neuro- prognostication, this should occur at the 72 hour matilda and during that time he would get an MRI and and EEG in the morning for evaluation of underlying neurological activity and evaluate further anoxic injury with MRI. We reviewed his current organ dysfunction and vasopressor agent and requirements. Following this the stated that he has not been feeling well for the past few months and that he actually got defibrillated by his AICD in September of 2022. She states that he has been so short of breath over the past few weeks that he could not walk 50 feet and that he started talking to her about the dying process and he felt he was close. She stated that he was with his friend today and told him that he feels that this would be his last visit to him and hunting camp this year. The and the sons both discussed at the bedside that he wouldn't have wanted to be in this current state and that God had already intervened and they don't want him to suffer or be in pain. They were given options of continuing full support for 72 hours and await further evaluations but making him DNR without escalation of care, Waiting 72 hours and continuing full support and what would happen if he would survive and have a recovery followed by rehab and care or if he survived and remained in his current state or PSV, and discussed stopping care at this time and extubating him to comfort care and providing medications so that he would not feel as he wasn't getting air, control anxiety and seizures, control secretions and let him pass with no further interventions. She stated that he would not want to be kept alive on life support and would not want to be left dependant on a ventilator or feeding tubes if he were to [place] t 72 hours and he would survive to remain in this current state. The and the son's both echoed that he wouldn't want to be like this or even if survived and recovered that he would not want to be dependant on others to take care of him. They opted for palliative extubation with stopping all vasoactive and sedating medications, terminally extubating the patient and provide comfort measures. Summary Additional details: Patient presented post cardiac arrest requiring multiple vasopressor agents to maintain HR and blood pressure. PRONOUNCEMENT NOTE Date: 09Jun2023 Time: 243 Patient was palliatively extubated following above discussion with family present. Assessment: I presented to the patients room for evaluation at 243 following cessation of arterial line blood pressure and failure to capture of his pacemaker. Upon assessment, the patient was found to be in a terminal state. Pupils were fixed and dilated without response. No palpable pulses appreciated. No spontaneous breaths noted. Heart sounds were absent. No response to painful stimuli was elucidated. Time of : 243 as pronounced by myself. Family - and 2 sons were present at bedside. Appropriate response to grief appreciated. Condolences provided. Questions were addressed and emotional support was provided. Patients primary service was contacted and he was present with me for pronouncement Pronouncement section of the Certificate was filled out and signed by myself. Cause of : Primary - heart failure Secondary - circulatory shock Contributing Causes of - metabolic acidosis Please feel free to contact me with any questions regarding the above-mentioned course. Patient was terminally extubated and TOD at 024 Additional Data Attending physician: Bert Campa MD
[2023-06-09] MEDS ORDERED: SODIUM CHLORIDE 0.9% 10ML FLUSH IV ONE (04:09)
[2023-06-09] MEDS ORDERED: SODIUM BICARB 8.4% INJ 50 MEQ/50 ML SYR IV ONE (04:09)
[2023-06-09] MEDS ORDERED: CALCIUM CHLORIDE 10% 10 ML SYR IV ONE (04:09)
[2023-06-09] MEDS ORDERED: ICU Protocol for HYPERglycemia SCH ×2 (06:00→07:30)
--- NOTE | 2023-06-09 07:41 | XRay Report ---
XR chest 1V portable HISTORY: 73 years-old Male post arrest acute respiratory failure COMPARISON: PA chest of same day TECHNIQUE: AP view of the chest FINDINGS: Low-lying endotracheal tube, 7 mm superior to the frieda. Cardiac silhouette is enlarged. The inferio r lung bases are excluded from the [id number]. Left subclavian pacer/AICD. No pneumothorax. Extens yelena intermixed interstitial and alveolar opacities with small pleural effusions. Bones appear grossly intact. IMPRESSION: 1. Low-lying endotracheal tube. Retraction of 3-4 cm recommended. 2. Cardiomegaly with extensive mixed interstitial and alveolar opacities suggestive of pulmonary ami a versus multifocal pneumonia. 3. Small layering pleural effusions. ACT 112: Negative or not required by law. The above report was generated using voice recognition software. It may contain grammatical, syntax o r spelling errors. Electronically signed by: Deacon Shell M.D. 06/09/2023 7:40 AM
--- NOTE | 2023-06-09 07:43 | XRay Report ---
XR chest 1V portable HISTORY: 73 years-old Male post arrest acute respiratory failure COMPARISON: Chest radiograph of same day TECHNIQUE: AP view of the chest FINDINGS: Reposition endotracheal tube, 1.9 cm superior to the frieda. Cardiac silhouette is enlarged. The infe rior lung bases are excluded from the [id number]. Left subclavian pacer/AICD. No pneumothorax. Ext ensive intermixed interstitial and alveolar opacities with small pleural effusions. Bones appear david sly intact. IMPRESSION: 1. Repositioned endotracheal tube now terminates 1.9 cm superior to the frieda. 2. Cardiomegaly with extensive mixed interstitial and alveolar opacities suggestive of pulmonary ami a versus multifocal pneumonia. 3. Small layering pleural effusions. Electronically signed by: Deacon Shell M.D. 06/09/2023 7:41 AM
--- NOTE | 2023-06-09 07:47 | XRay Report ---
XR chest 1V portable HISTORY: 73 years-old Male post arrest acute respiratory failure COMPARISON: Chest radiograph in 2023 TECHNIQUE: AP view of the chest FINDINGS: Endotracheal tube terminates approximately 3.4 cm superior to the frieda. A right IJ central venous c atheter distal tip is noted within the expected location of the mid to inferior SVC. Cardiac silhouet te is enlarged. Left subclavian pacer/AICD. No pneumothorax. Stable mixed interstitial and alveolar o pacities with small pleural effusions and bibasilar consolidation. Bones appear grossly intact. IMPRESSION: 1. Lines and tubes as above. 2. Cardiomegaly with persistent mixed interstitial and alveolar opacities. 3. Small layering pleural effusions with mildly progressive right basilar consolidation. Electronically signed by: Deacon Shell M.D. 06/09/2023 7:46 AM
--- NOTE | 2023-06-09 07:47 | XRay Report ---
XR chest 1V portable HISTORY: 73 years-old Male post arrest acute respiratory failure COMPARISON: PA chest of same day TECHNIQUE: AP view of the chest FINDINGS: Repositioned endotracheal tube now terminates 4.4 cm superior to the frieda. Status post placement of a right IJ central venous catheter distal tip in expected location of the mid to inferior SVC. Cardi ac silhouette is enlarged. Left subclavian pacer/AICD. No pneumothorax. Improving intermixed intersti tial and alveolar opacities with small pleural effusions. Bones appear grossly intact. IMPRESSION: 1. Lines and tubes as above. 2. Cardiomegaly with moderately improved mixed interstitial and alveolar opacities. 3. Small layering pleural effusions. Electronically signed by: Deacon Shell M.D. 06/09/2023 7:45 AM
--- NOTE | 2023-06-09 08:37 | History & Physical Report ---
Date of Service June 08, 2023 Assessment & Plan (1) Cardiac arrest: Plan: 73-year-old male seems history of systolic CHF, s/p AICD was brought in with cardiac arrest. Patient seems was on the highway with a friend to [employer] [facility] when reportedly complained of chest pain and went unresponsive. EMS was called. There was no pulse and AED advised no shock. When ALS arrived he was noted to be in V. tach and was defibrillated x 1 and intubated in the field. Seems prolonged PEA with intermittent ROSC >45 minutes.It was reported had epinephrine x 5 and 50 mg of bicarb and 1 g calcium.. In the ER when he came he had a pulse. But he had an episode of V-fib and was shocked once and ROSC was obtained. Patient was started on epinephrine infusion. And also started on Levophed drip. His VBG showed pH less than 7. Lactic acid is 9.5. Potassium of 6.5, creatinine 1.6. Initial troponin 53. Repeat troponin 186. Interventional cardiology did bedside echo and thought to be no regional wall motion abnormalities and showing dilated cardiomyopathy with severe global LV dysfunction.. Patient was also started on bicarb drip. And was admitted to ICU. CT head obtained which showed global cerebral edema findings consistent with hypoxic ischemic injury. CTA chest shows sternal body fracture fracture and rib fractures. Possible aspiration pneumonia. And pulm edema. No aortic aneurysm or dissection and no PE. Initially for the ER family wanted patient to be full code. Later after CT head obtained ICU was able to talk to the family. Decided for terminal extubation given poor prognosis. Patient terminally extubated and on June 09, 2023 at 2:44am. Possible cause acute on chronic systolic CHF, circulatory shock, metabolic acidosis and hyperkalemia. History of Present Illness Chief Complaint: Cardiac arrest Primary Care Provider: NO PCP 73-year-old male seems history of systolic CHF, s/p AICD was brought in with cardiac arrest. Patient seems was on the highway with a friend to [place] when reportedly complained of chest pain and went unresponsive. EMS was called. There was no pulse and AED advised no shock. When ALS arrived he was noted to be in V. tach and was defibrillated x 1 and intubated in the field. Seems prolonged PEA with intermittent ROSC >45 minutes.It was reported had epinephrine x 5 and 50 mg of bicarb and 1 g calcium.. In the ER when he came he had a pulse. But he had an episode of V-fib and was shocked once and ROSC was obtained. Patient was started on epinephrine infusion. And also started on Levophed drip. His VBG showed pH less than 7. Lactic acid is 9.5. Potassium of 6.5, creatinine 1.6. Initial troponin 53. Repeat troponin 186. Interventional cardiology did bedside echo and thought to be no regional wall motion abnormalities and showing dilated cardiomyopathy with severe global LV dysfunction.. Patient was also started on bicarb drip. And was admitted to ICU. CT head obtained which showed global cerebral edema findings consistent with hypoxic ischemic injury. CTA chest shows sternal body fracture fracture and rib fractures. Possible aspiration pneumonia. And pulm edema. No aortic aneurysm or dissection and no PE. Initially for the ER family wanted patient to be full code. Later after CT head obtained ICU was able to talk to the family. Decided for terminal extubation given poor prognosis. Patient terminally extubated and on June 09, 2023 at 2:44am. Allergies Allergy/AdvReac Type Severity Reaction Status Date / Time Unable to Assess Allergy Verified 06/08/23 19:48 Home Medications Medication Instructions Recorded Confirmed Type amiodarone 200 mg tablet 200 mg PO DAILY 06/08/23 06/08/23 History apixaban 5 mg tablet (Eliquis) 5 mg PO BID 06/08/23 06/08/23 History carvedilol 12.5 mg tablet 12.5 mg PO BID 06/08/23 06/08/23 History fluocinolone 0.01 % topical body 1 applic topical DIRECTED 06/08/23 06/08/23 History oil furosemide 40 mg tablet 40 mg PO DAILY 06/08/23 06/08/23 History ketoconazole 2 % shampoo 1 applic topical DIRECTED 06/08/23 06/08/23 History nitroglycerin 0.4 mg sublingual 0.4 mg sublingual DIRECTED PRN 06/08/23 06/08/23 History tablet Chest Pain rosuvastatin 20 mg tablet 20 mg PO DAILY 06/08/23 06/08/23 History sacubitril 49 mg-valsartan 51 mg 1 tab PO BID 06/08/23 06/08/23 History tablet (Entresto) sertraline 50 mg tablet 50 mg PO DIRECTED 06/08/23 06/08/23 History Past Med/Surg History Social History Smoking Status: Unknown if ever smoked Preferred Language: Estonian Counter Checker Required: No Review of Systems Review of Systems: Unobtainable due to endotracheal tube Physical Exam Physical Exam: Physical exam at admission: General-intubated and sedated Head- atraumatic Eyes- pupils sluggish reaction to light Lungs- clear to auscultation mild bibasilar crackles, no wheezing Heart- regular rhythm; no murmur, no gallop Abdomen-sluggish bowel sounds, no distension. Extremities- b/l lower extremity edema present . No erythema seen. Neuro- Intubated and sedated. Having spontaneous jerks Results & Data Results & Data Vital Signs (Past 12 Hours) Vital Signs Pulse Pulse Ox O2 Del Method 06/08/23 21:24 Mechanical Vent 06/08/23 21:23 96 Mechanical Vent 06/08/23 19:57 51 L 06/08/23 19:50 45 L 06/08/23 19:28 50 L Diagnostic Findings Laboratory Results WBC 8.70 K/ul (4.8-10.8) 06/08/23 19:35 RBC 4.61 M/uL (4.70-6.10) L 06/08/23 19:35 Hgb 13.3 g/dl (14.0-18.0) L 06/08/23 19:35 POC Hgb 14.6 g/dl (14.0-18.0) 06/08/23 23:25 Hct 44.8 % (42.0-52.0) 06/08/23 19:35 POC Hct 43 % (42-52) 06/08/23 23:25 MCV 97.2 fL (80.0-100.0) 06/08/23 19:35 MCH 28.9 pg (25.0-34.0) 06/08/23 19:35 MCHC 29.7 g/dL (32.0-36.0) L 06/08/23 19:35 RDW Std Deviation 50.0 fL (36.4-46.3) H 06/08/23 19:35 RDW Coeff of Margarita 14.0 % (11.5-14.5) 06/08/23 19:35 Plt Count 118 K/uL (130-400) L 06/08/23 19:35 MPV 11.4 fL (9.4-12.4) 06/08/23 19:35 Immature Gran % (Auto) 6.3 % 06/08/23 19:35 Neut % (Auto) 60.1 % 06/08/23 19:35 Lymph % (Auto) 25.1 % 06/08/23 19:35 Evangeline % (Auto) 5.6 % 06/08/23 19:35 Eos % (Auto) 2.3 % 06/08/23 19:35 Baso % (Auto) 0.6 % 06/08/23 19:35 Neut # (Auto) 5.23 K/uL (1.40-6.50) 06/08/23 19:35 Lymph # (Auto) 2.18 K/uL (1.20-3.40) 06/08/23 19:35 Evangeline # (Auto) 0.49 K/uL (0.11-0.59) 06/08/23 19:35 Eos # (Auto) 0.20 K/uL (0.00-0.50) 06/08/23 19:35 Baso # (Auto) 0.05 K/uL (0.00-0.20) 06/08/23 19:35 Immature Gran # (Auto) 0.55 K/uL (0.01-0.20) H 06/08/23 19:35 Absolute Nucleated RBC 0.02 K/uL (0.00-0.12) 06/08/23 19:35 Nucleated RBC % (auto) 0.2 % 06/08/23 19:35 Polychromasia 1+ 06/08/23 19:35 Echinocytes 3+ 06/08/23 19:35 PT 12.7 Seconds (9.0-12.0) H 06/08/23 19:35 INR 1.2 (0.9-1.1) H 06/08/23 19:35 Sample Site Art Line 06/08/23 23:25 POC pH 7.32 (7.35-7.45) L 06/08/23 23:25 POC pCO2 39 mmHg (35-46) 06/08/23 23:25 POC pO2 140 mmHg (80-95) H 06/08/23 23:25 POC HCO3 20 yokasta/L (19-24) 06/08/23 23:25 POC Total CO2 21 mmol/L (24-31) L 06/08/23 23:25 POC Base Excess -6.0 yokasta/L (-9-1.8) 06/08/23 23:25 ABG pH (Temp Correct) 7.348 (7.35-7.45) L 06/08/23 23:25 ABG pCO2 (Temp Corrct 36 mmHg (35-46) 06/08/23 23:25 POC ABG pO2 at Pt Temp 129 06/08/23 23:25 POC ABG O2 Sat 99.0 % (90-95) H 06/08/23 23:25 Moises Test NA 06/08/23 23:25 VBG pH < 7.00 (7.36-7.41) L 06/08/23 19:35 VBG pCO2 102 mmHg (38-50) H 06/08/23 19:35 VBG pO2 54 mmHg 06/08/23 19:35 VBG HCO3 TNP 06/08/23 19:35 VBG O2 Saturation 61.8 % 06/08/23 19:35 VBG Base Excess TNP 06/08/23 19:35 O2 Delivery Device Ventilator 06/08/23 23:25 POC O2 Rate 22 06/08/23 23:25 POC FiO2 80 % 06/08/23 23:25 Tidal Volume 500 06/08/23 23:25 PEEP 10 06/08/23 23:25 POC Sodium 138 mmol/L (135-144) 06/08/23 23:25 Sodium 136 mmol/L (136-145) 06/08/23 23:45 POC Potassium 5.2 mmol/L (3.3-5.0) H 06/08/23 23:25 Potassium 5.0 mmol/L (3.5-5.1) D 06/08/23 23:45 POC Chloride 102 mmol/L (101-112) 06/08/23 20:04 Chloride 107 mmol/L (98-107) 06/08/23 23:45 Carbon Dioxide 19 mmol/L (21-32) L 06/08/23 23:45 POC Total CO2 33 mmol/L (24-31) H 06/08/23 20:04 Anion Gap 10 (3-11) 06/08/23 23:45 POC Anion Gap 14.0 mmol/L (16-25) L 06/08/23 20:04 POC BUN 22 mg/dl (7-18) H 06/08/23 20:04 BUN 26 mg/dl (6-23) H 06/08/23 23:45 Creatinine 1.67 mg/dl (0.6-1.4) H 06/08/23 23:45 POC Creatinine 1.4 mg/dl (0.6-1.3) H 06/08/23 20:04 Est Cr Clr Drug Dosing 56.7 ml/min 06/08/23 23:45 Est GFR ( Amer) 46.7 ml/min 06/08/23 23:45 Est GFR (Non-Af Amer) 40.3 ml/min 06/08/23 23:45 BUN/Creatinine Ratio 15.6 (10-20) 06/08/23 23:45 Glucose 265 mg/dl (70-99(Fasting)) H 06/08/23 23:45 POC Glucose 219 mg/dl (70-99) H 06/08/23 23:37 POC Glucose (other) 341 mg/dl (70-99) H 06/08/23 20:04 Lactate 3.9 mmol/L (0.4-2.0) H* 06/08/23 23:45 Calcium 8.5 mg/dl (8.6-10.3) L 06/08/23 23:45 POC Ioniz Calcium Sadie 1.42 mmol/l (1.12-1.32) H 06/08/23 20:04 Magnesium 1.9 mg/dl (1.7-2.4) 06/08/23 23:45 Total Bilirubin 0.4 mg/dl (0.2-1.0) 06/08/23 19:35 AST 98 U/L (13-39) H 06/08/23 19:35 ALT 77 U/L (7-52) H 06/08/23 19:35 Alkaline Phosphatase 58 U/L (34-104) 06/08/23 19:35 Total Creatine Kinase 136 U/L (30-223) 06/08/23 19:35 Troponin I High Sens 186.9 pg/ml (0-20) H* D 06/08/23 21:32 Total Protein 5.6 gm/dl (6.0-8.3) L 06/08/23 19:35 Albumin 3.1 gm/dl (3.4-5.0) L 06/08/23 19:35 Globulin 2.5 gm/dl (2.5-4.0) 06/08/23 19:35 Albumin/Globulin Ratio 1.2 (0.9-2) 06/08/23 19:35 Lipase 60 U/L (11-82) 06/08/23 19:35 Urine Color Yellow 06/08/23 21: Urine Appearance Cloudy (Clear) A 06/08/23 21: Urine pH 5.0 (4.5-7.5) 06/08/23 21: Ur Specific [place] 1.023 (1.000-1.030) 06/08/23 21: Urine Protein 2+ (Negative) H 06/08/23 21: Urine Glucose (UA) Negative (Negative) 06/08/23: Urine Ketones Negative (Negative) 06/08/23: Urine Blood Negative (Negative) 06/08/23 21: Urine Nitrite Negative (Negative) 06/08/23 21: Urine Bilirubin Negative (Negative) 06/08/23 21: Urine Urobilinogen Negative (Negative) 06/08/23 21: Ur Leukocyte Esterase Negative (Negative) 06/08/23 21: Urine WBC (Auto) 10-30 /hpf (0-5) H 06/08/23 21: Urine RBC (Auto) 5-10 /hpf (0-4) H 06/08/23 21: U Hyaline Cast (Auto) 1-5 /lpf (0-5) 06/08/23 21: U Epithel Cells (Auto) >30 /lpf (0-5) H 06/08/23 21: Urine Bacteria (Auto) Negative (Negative) 06/08/23 21: Ur Renal Epithelial Cell Not Reportable 06/08/23 21: Nasal Screen MRSA (PCR) Negative (Negative) 06/08/23 Unknown Impressions Chest CTA 06/08/23 21:04 Exam(s): CTA CHEST W/WO Contrast IV Amt: 114 ml opti 320 EXAM: CT Angiography Chest Without and With Intravenous Contrast CLINICAL HISTORY: Reason for exam: post arrest. TECHNIQUE: Axial computed tomographic angiography images of the chest without and with intravenous contrast. CTDI is 54.8 mGy and DLP is 1448.63 mGy-cm. Automated exposure control was utilized for the study. A dose lowering technique was utilized adhering to the principles of ALARA. MIP reconstructed images were created and reviewed. CONTRAST: Patient received 114 ml opti 320 of IV contrast COMPARISON: No relevant prior studies available. FINDINGS: Endotracheal tube terminates 2.5 cm from the frieda. Right internal jugular central venous catheter extends to the SVC. There is a left chest wall dual-lead AICD-pacemaker. There is thoracic aortic atherosclerosis without intramural hematoma, aneurysm, or dissection. There is adequate pulmonary artery opacification with normal caliber of the main pulmonary artery. There is no evidence of acute pulmonary embolism. Heart size is upper limits of normal. Coronary arteries are calcified. There is no pericardial effusion or RV strain. There is no mediastinal, hilar, or axillary lymphadenopathy by CT size criteria. There are small layering bilateral pleural effusions. There is no pneumothorax. Dependent consolidations are present in the bilateral upper and lower lobes, with nondependent patchy alveolar opacities bilaterally. Additionally, pulmonary edema suggested with septal thickening diffusely. There are findings of recent chest compressions with acute nondisplaced sternal body fracture. There are nondisplaced buckle fractures of anterior right ribs 3-4. There are mildly displaced fractures of anterior left ribs 2-3, and nondisplaced fractures of anterior left ribs 4-6. There are degenerative changes within the spine. IMPRESSION: 1. Evidence of recent chest compressions with nondisplaced sternal body fracture, fractures of anterior right ribs 3-4, and fractures of anterior left ribs 2-6. Fractures of left ribs 2-3 are mildly displaced. 2. Bilateral dependent consolidations and nondependent patchy opacities. Such parenchymal lung abnormalities are frequently seen status post chest compressions. Aspiration, pneumonia not excluded. 3. Pulmonary edema and small pleural effusions. 4. No evidence of aortic aneurysm or dissection. No evidence of pulmonary embolism. Electronically signed by: Jarek Harden M.D. 06/08/23 23:[address] 06/08/23 21:04 Exam(s): CT HEAD Without Contrast EXAM: CT Head Without Intravenous Contrast CLINICAL HISTORY: Reason for exam: post arrest. TECHNIQUE: Axial computed tomography images of the head/brain without intravenous contrast. CTDI is 54.8 mGy and DLP is 1067.74 mGy-cm. Automated exposure control was utilized for the study. A dose lowering technique was utilized adhering to the principles of ALARA. COMPARISON: No relevant prior studies available. FINDINGS: Brain: Diffuse loss of perez-white matter differentiation. Sulcal, sylvian fissure, and basal cistern effacement. Background of chronic small vessel ischemic disease. No acute intracranial hemorrhage. No midline shift. Ventricles: Unremarkable. No hydrocephalus. Bones/joints: Unremarkable. No skull fracture. Soft tissues: Unremarkable. Sinuses: Chronic severe inflammatory paranasal sinus disease with complete opacification of the left frontal sinus and bilateral maxillary sinuses, in majority opacification of the ethmoid air cells. Mild mucosal thickening in the sphenoid sinus. Right frontal sinus is clear. Mastoid air cells: Mastoid air cells are clear. Tubes, lines and devices: Patient is intubated. IMPRESSION: Diffuse loss of perez-white matter differentiation. Global cerebral edema. Findings consistent with hypoxic-ischemic injury. Electronically signed by: Jarek Harden M.D. 06/08/23 23:02 PM Chest X-Ray 06/08/23 23:39 XR chest 1V portable HISTORY: 73 years-old Male post arrest acute respiratory failure COMPARISON: Chest radiograph in 2023 TECHNIQUE: AP view of the chest FINDINGS: Endotracheal tube terminates approximately 3.4 cm superior to the frieda. A right IJ central venous catheter distal tip is noted within the expected location of the mid to inferior SVC. Cardiac silhouette is enlarged. Left subclavian pacer/AICD. No pneumothorax. Stable mixed interstitial and alveolar opacities with small pleural effusions and bibasilar consolidation. Bones appear grossly intact. IMPRESSION: 1. Lines and tubes as above. 2. Cardiomegaly with persistent mixed interstitial and alveolar opacities. 3. Small layering pleural effusions with mildly progressive right basilar consolidation. Electronically signed by: Deacon Shell M.D. 06/09/2023 7:46 AM ECG Additional Comments: ECG. AV dual paced rhythm with prolonged AV conduction with frequent ventricular paced complexes rate of 49 Code Status & VTE Plan VTE Prophylaxis Plan VTE Prophylaxis will be ordered: Yes
[2023-06-09] MEDS ORDERED: AMIODARONE 200 MG TAB PO SCH (09:00)
[2023-06-09] MEDS ORDERED: ROSUVASTATIN CALCIUM 20 MG TAB PO SCH (09:00)
--- NOTE | 2023-06-09 09:37 | Discharge Summary ---
Date of Service June 09, 2023 Admission HPI Per Admitting Provider 73-year-old male seems history of systolic CHF, s/p AICD was brought in with cardiac arrest. Patient neeraj was on the highway with a friend to [employer] when reportedly complained of chest pain and went unresponsive. EMS was called. There was no pulse and AED advised no shock. When ALS arrived he was noted to be in V. tach and was defibrillated x 1 and intubated in the field. Seems prolonged PEA with intermittent ROSC >45 minutes.It was reported had epinephrine x 5 and 50 mg of bicarb and 1 g calcium.. In the ER when he came he had a pulse. But he had an episode of V-fib and was shocked once and ROSC was obtained. Patient was started on epinephrine infusion. And also started on Levophed drip. His VBG showed pH less than 7. Lactic acid is 9.5. Potassium of 6.5, creatinine 1.6. Initial troponin 53. Repeat troponin 186. Interventional cardiology did bedside echo and thought to be no regional wall motion abnormalities and showing dilated cardiomyopathy with severe global LV dysfunction.. Patient was also started on bicarb drip. And was admitted to ICU. CT head obtained which showed global cerebral edema findings consistent with hypoxic ischemic injury. CTA chest shows sternal body fracture fracture and rib fractures. Possible aspiration pneumonia. And pulm edema. No aortic aneurysm or dissection and no PE. Initially for the ER family wanted patient to be full code. Later after CT head obtained ICU was able to talk to the family. Decided for terminal extubation given poor prognosis. Patient terminally extubated and on June 09, 2023 at 2:44am. Principal Diagnosis s/p cardiac arrest Discharge Data Allergies Allergy/AdvReac Type Severity Reaction Status Date / Time Unable to Assess Allergy Verified 06/08/23 19:48 Consultations 06/08/23 20:37 ED Decision to Admit Stat 06/08/23 23:23 Consult Spike Maker Routine Ordered Studies 06/08/23 21:04 CT head/brain wo con Stat CTA chest dissec wo/w con [CT angio chest dissec wo/w con] Stat Hospital Course (1) Cardiac arrest: 1) Cardiac arrest: Plan: 73-year-old male seems history of systolic CHF, s/p AICD was brought in with cardiac arrest. Patient neeraj was on the highway with a friend to [employer] when reportedly complained of chest pain and went unresponsive. EMS was called. There was no pulse and AED advised no shock. When ALS arrived he was noted to be in V. tach and was defibrillated x 1 and intubated in the field. Seems prolonged PEA with intermittent ROSC >45 minutes.It was reported had epinephrine x 5 and 50 mg of bicarb and 1 g calcium.. In the ER when he came he had a pulse. But he had an episode of V-fib and was shocked once and ROSC was obtained. Patient was started on epinephrine infusion. And also started on Levophed drip. His VBG showed pH less than 7. Lactic acid is 9.5. Potassium of 6.5, creatinine 1.6. Initial troponin 53. Repeat troponin 186. Interventional cardiology did bedside echo and thought to be no regional wall motion abnormalities and showing dilated cardiomyopathy with severe global LV dysfunction.. Patient was also started on bicarb drip. And was admitted to ICU. CT head obtained which showed global cerebral edema findings consistent with hypoxic ischemic injury. CTA chest shows sternal body fracture fracture and rib fractures. Possible aspiration pneumonia. And pulm edema. No aortic aneurysm or dissection and no PE. Initially for the ER family wanted patient to be full code. Later after CT head obtained ICU was able to talk to the family. Decided for terminal extubation given poor prognosis. Patient terminally extubated and on June 09, 2023 at 2:44am. Possible cause acute on chronic systolic CHF, circulatory shock, metabolic acidosis and hyperkalemia. Total Time Total Time Spent Total Time Spent (In Minutes): 40minutes Discharge Plan Discharge Items Patient Disposition: Other Date/Time: 06/09/23 02:45
--- NOTE | 2023-06-09 17:43 | Electrocardiogram Report ---
Test Reason : Blood Pressure : / mmHG Vent. Rate : 049 BPM Atrial Rate : 034 BPM P-R Int : 246 ms QRS Dur : 158 ms QT Int : 600 ms P-R-T Axes : 000 -69 088 degrees QTc Int : 542 ms AV dual-paced rhythm with a change in AV interval Abnormal ECG No previous ECGs available Confirmed by Jose Middleton ([id number]) on 06/09/2023 5:43:23 PM Referred By: REFERRED SELF Confirmed By:Jose Middleton
== END 2023-06-09 04:10 | disposition expired | DRG 296 ==
LOC: ED 19:24 → 1E 21:25
DX: E87.20 Acidosis, unspecified; I46.9 Cardiac arrest, cause unspecified; I50.21 Acute systolic (congestive) heart failure; R74.8 Abnormal levels of other serum enzymes; E66.01 Morbid (severe) obesity due to excess calories; N17.9 Acute kidney failure, unspecified; E87.5 Hyperkalemia; R73.9 Hyperglycemia, unspecified; Z66 Do not resuscitate; Z51.5 Encounter for palliative care; Z68.41 Body mass index [BMI] 40.0-44.9, adult; Z79.01 Long term (current) use of anticoagulants; R57.9 Shock, unspecified